=== PATIENT | male | born 1960 | race Caucasian/White ===

== ENCOUNTER 2023-05-29 12:08 | Inpatient (IN) | payer OTHER, MEDICAID ==
[~2023-05-29] VITALS: Ht 167.6 cm; Wt 79.0 kg
[2023-05-29 14:35] LABS: Basophils # (auto) 0 10 ^3/uL (0-0.2); Basophils % (auto) 0.4 % (0.0-2.0); Eosinophils # (auto) 0 10 ^3/uL (0-0.8); Eosinophils % (auto) 0.3 % (0.0-7.0); Hematocrit 26.1 % (41.0-53.0); Hemoglobin 9.1 g/dL (13.5-17.5); Lymphocytes # (auto) 1.8 10 ^3/uL (0.4-5.4); Lymphocytes % (auto) 14.5 % (10.0-50.0); Mean Corpuscular Hemoglobin 31.2 pg (28.0-32.0); Mean Corpuscular Hgb Conc. 34.9 g/dL (32.0-36.0); Mean Corpuscular Volume 89.3 fL (80.0-100.0); Monocytes # (auto) 0.7 10 ^3/uL (0-1.3); Monocytes % (auto) 5.7 % (0.0-12.0); Neutrophils # (auto) 9.9 10 ^3/uL (1.6-8.6); Neutrophils % (auto) 79.1 % (37.0-80.0); Nucleated Red Blood Cells % 0.2 %; Red Blood Cells 2.92 10^6/uL (4.5-5.90); Red Cell Distribution Width 13.4 % (11.8-14.3); White Blood Cell 12.5 10^3/uL (4.4-10.8)
[2023-05-29 14:52] LABS: Alanine Aminotransferase 19 U/L (7-40); Albumin 3.7 g/dL (3.2-4.8); Alkaline Phosphatase 94 U/L (46-116); Anion Gap 7 (5-15); Aspartate Aminotransferase 16 U/L (13-40); BUN/Creatinine Ratio 29.3 (10.0-20.0); Bilirubin, Total 1.9 mg/dL (0.2-1.0); Blood Urea Nitrogen 29 mg/dL (9-23); Calcium 9.1 mg/dL (8.7-10.4); Carbon Dioxide 26 mmol/L (20-30); Chloride 100 mmol/L (98-107); Lipase 70 U/L (12-53); Potassium 4.1 mmol/L (3.5-5.1); Sodium 133 mmol/L (136-145)
[2023-05-29 15:13] LABS: Glucose 439 mg/dL (74-106); Lactic Acid w/Reflex 2.7 mmol/L (0.4-2.0)
[2023-05-29] MEDS: SODIUM CHLORIDE 0.9% 1,000 ML IV ONE (15:43)
[2023-05-29] MEDS: PIPERACILLIN-TAZOB 3.375GM 100 ML IV ONE (15:44)
[2023-05-29] MEDS: PANTOPRAZOLE 40 MG/10 ML VIAL INJ IV ONE (15:46)
[2023-05-29 16:04] VITALS: PULSE 93; RESP 17; O2SAT 95
[2023-05-29] MEDS: IOHEXOL 300 MG/ML 100ML BOTTLE IJ ONE (16:09)
[2023-05-29] MEDS ORDERED: MORPHINE SULFATE INJ 2 MG/ml SYRG IV PRN ×2 (16:15)
[2023-05-29] MEDS ORDERED: NITROGLYCERIN 0.4 MG SL TAB SL PRN (16:15)
[2023-05-29 16:24] LABS: INR 1.14 (0.9-1.15); Partial Thromboplastin Time 21.9 SEC (24.5-34.5); Prothrombin Time 11.9 sec (9.3-11.8)
[2023-05-29] MEDS ORDERED: DEXTROSE (50%) 50ML SYRG IV PRN (16:30)
[2023-05-29] MEDS: ONDANSETRON HCL 4 MG/2 ML VIAL IV PRN (16:50)
[2023-05-29] MEDS: MORPHINE SULFATE INJ 2 MG/ml SYRG IV PRN (16:51)
[2023-05-29] MEDS: PANTOPRAZOLE 40mg/50ML NS AE 50 ML IV SCH (16:57)
[2023-05-29] MEDS: OCTREOTIDE ACETATE 100 MCG in SODIUM CHL 0.9% 50 ML IV ONE (17:58)
[2023-05-29] MEDS: SODIUM CHLORIDE 0.9% 1,000 ML IV SCH (18:00)
[2023-05-29] MEDS: OCTREOTIDE ACETATE 500 MCG in SODIUM CHL 0.9% 99 ML IV SCH (18:31)
[2023-05-29] MEDS: ACCU-CHEK COMFORT CURVE STRIP VI SCH (18:39)
[2023-05-29 18:50] LABS: Urine Bacteria None Seen /hpf (None Seen)
[2023-05-29 19:16] LABS: Hemoglobin 8.2 g/dL (13.5-17.5)
[2023-05-29 19:30] VITALS: PULSE 85; RESP 20; O2SAT 93
[2023-05-29 19:47] LABS: Urine Blood Negative /uL (Negative); Urine Clarity Clear (Clear); Urine Color Light-Yellow (Yellow); Urine Protein, UAD Negative (Negative); Urine Urobilinogen Normal (Negative); Urine WBC 1 /hpf (0 - 3)
[2023-05-29 19:50] LABS: Urine Specific Gravity > 1.050 (1.001-1.035)
[2023-05-30] VITALS (8 sets, daily range): BP systolic 104–132; BP diastolic 59–77; PULSE 78–86; RESP 14–20; TEMP 98.3–98.6; O2SAT 90–100
[2023-05-30 01:10] LABS: Hematocrit 22.7 % (41.0-53.0)
[2023-05-30 06:03] LABS: Basophils # (auto) 0 10 ^3/uL (0-0.2); Basophils % (auto) 0.4 % (0.0-2.0); Eosinophils # (auto) 0.1 10 ^3/uL (0-0.8); Eosinophils % (auto) 1.4 % (0.0-7.0); Hemoglobin 7.6 g/dL (13.5-17.5); Lymphocytes # (auto) 1.4 10 ^3/uL (0.4-5.4); Monocytes # (auto) 0.6 10 ^3/uL (0-1.3); Monocytes % (auto) 7.2 % (0.0-12.0)
[2023-05-30 06:04] LABS: Hematocrit 22.4 % (41.0-53.0); Lymphocytes % (auto) 18.3 % (10.0-50.0); Mean Corpuscular Hemoglobin 31.9 pg (28.0-32.0); Mean Corpuscular Hgb Conc. 34.1 g/dL (32.0-36.0); Mean Corpuscular Volume 93.4 fL (80.0-100.0); Neutrophils # (auto) 5.6 10 ^3/uL (1.6-8.6); Neutrophils % (auto) 72.7 % (37.0-80.0); Nucleated Red Blood Cells % 0.2 %; Red Cell Distribution Width 13.5 % (11.8-14.3); White Blood Cell 7.7 10^3/uL (4.4-10.8)
[2023-05-30 06:11] LABS: Chloride 106 mmol/L (98-107); Potassium 3.8 mmol/L (3.5-5.1); Sodium 135 mmol/L (136-145)
[2023-05-30 06:12] LABS: Anion Gap 8 (5-15); Carbon Dioxide 21 mmol/L (20-30)
[2023-05-30 06:17] LABS: BUN/Creatinine Ratio 16.5 (10.0-20.0); Blood Urea Nitrogen 13 mg/dL (9-23)
[2023-05-30 06:20] LABS: Glucose 251 mg/dL (74-106)
[2023-05-30] MEDS ORDERED: FLUMAZENIL 0.1 MG/ML INJ 10ML MDV IV ONE (09:11)
[2023-05-30] MEDS ORDERED: SODIUM CHLORIDE LOCK 10 ML ONE (09:11)
[2023-05-30] MEDS ORDERED: NALOXONE HCL 0.4 MG/ML VIAL ONE (09:11)
[2023-05-30] MEDS: MIDAZOLAM HCL 5 MG/ML-1ML VIAL ONE (09:21)
[2023-05-30] MEDS: fentaNYL CITRATE 100 MCG/2 ML VL ONE (09:21)
[2023-05-30] MEDS ORDERED: EPINEPHrine HCL 1 MG/10 ML SYRG ONE (09:22)
[2023-05-30 13:14] LABS: Hematocrit 21.1 % (41.0-53.0); Hemoglobin 7.3 g/dL (13.5-17.5)
[2023-05-30] MEDS ORDERED: DEXTROSE (50%) 50ML SYRG IV PRN (14:45)
[2023-05-30] MEDS: ACCU-CHEK COMFORT CURVE STRIP VI SCH (17:00)
[2023-05-30] MEDS: InsuLIN REG 1unit/0.01ml Soln (100units/ml) SC SCH (18:33)
[2023-05-30] MEDS: PANTOPRAZOLE 40 MG/10 ML VIAL INJ IV SCH (21:53)
[2023-05-31] VITALS (11 sets, daily range): BP systolic 108–129; BP diastolic 60–66; PULSE 68–87; RESP 15–20; TEMP 98.2–99; O2SAT 92–95
[2023-05-31 06:18] LABS: Basophils # (auto) 0 10 ^3/uL (0-0.2); Basophils % (auto) 0.2 % (0.0-2.0); Eosinophils # (auto) 0.2 10 ^3/uL (0-0.8); Hematocrit 25.7 % (41.0-53.0); Lymphocytes # (auto) 1.2 10 ^3/uL (0.4-5.4); Mean Corpuscular Hemoglobin 31.4 pg (28.0-32.0); Mean Corpuscular Hgb Conc. 34.9 g/dL (32.0-36.0); Mean Corpuscular Volume 89.7 fL (80.0-100.0); Monocytes # (auto) 0.4 10 ^3/uL (0-1.3); Monocytes % (auto) 7.5 % (0.0-12.0); Neutrophils # (auto) 4.1 10 ^3/uL (1.6-8.6); Neutrophils % (auto) 69.3 % (37.0-80.0); Nucleated Red Blood Cells % 0.1 %; Red Blood Cells 2.86 10^6/uL (4.5-5.90); Red Cell Distribution Width 13.8 % (11.8-14.3); White Blood Cell 5.9 10^3/uL (4.4-10.8)
[2023-05-31 06:27] LABS: Calcium 7.8 mg/dL (8.5-10.1); Chloride 104 mmol/L (98-107); Potassium 3.5 mmol/L (3.5-5.1); Sodium 135 mmol/L (136-145)
[2023-05-31 06:28] LABS: Anion Gap 8 (5-15); Carbon Dioxide 23 mmol/L (20-30)
[2023-05-31 06:33] LABS: BUN/Creatinine Ratio 15.2 (10.0-20.0); Blood Urea Nitrogen 10 mg/dL (9-23); Glucose 203 mg/dL (74-106)
[2023-05-31] MEDS: HYDROcodone-ACET 5/325MG TAB PO PRN (12:22)
[2023-05-31] MEDS: PROPRANOLOL HCL 20 MG TAB PO SCH (21:29)
[2023-06-01 01:00] VITALS: BP 108/65; PULSE 82; RESP 20; TEMP 100.2; O2SAT 94
[2023-06-01 05:00] VITALS: BP 109/64; PULSE 80; RESP 20; TEMP 99.5; O2SAT 94
[2023-06-01] MEDS: ACETAMINOPHEN 325 MG TAB PO PRN (05:23)
[2023-06-01 06:59] LABS: Hematocrit 25.8 % (41.0-53.0); Hemoglobin 8.9 g/dL (13.5-17.5)
[2023-06-01 09:00] VITALS: BP 100/61; PULSE 63; RESP 16; TEMP 98.2; O2SAT 96
[2023-06-01] MEDS ORDERED: ASCO500C16 PO (12:21)
[2023-06-01] MEDS ORDERED: PANT40TA57 PO (12:21)
[2023-06-01] MEDS ORDERED: PROP1TAB53 PO (12:21)
[2023-06-01] MEDS ORDERED: FERR-7 PO (12:21)
[2023-06-01 13:00] VITALS: BP 106/61; PULSE 58; RESP 17; TEMP 98.3; O2SAT 95
[2023-06-01 14:43] VITALS: BP 106/61; PULSE 64; RESP 17; TEMP 98.1; O2SAT 94
== END 2023-06-01 16:13 | disposition home or self-care (01) | DRG 432 ==
LOC: ER 12:08 → TELE 16:14 → TELE-CENTR 05-30 11:41
PROVIDERS: ADMIT Hospitalist; ATTEND Hospitalist
PROC: 06L38CZ Occlusion of Esophageal Vein with Extraluminal Device, Via Natural or Artificial Opening Endoscopic (ICD-10-PCS; 2023-05-30)
PROC: 30233N1 Transfusion of Nonautologous Red Blood Cells into Peripheral Vein, Percutaneous Approach (ICD-10-PCS; 2023-05-30)
PROC: 0DB78ZX Excision of Stomach, Pylorus, Via Natural or Artificial Opening Endoscopic, Diagnostic (ICD-10-PCS; principal; 2023-05-30 09:18)
DX: K74.60 Unspecified cirrhosis of liver (principal); K25.4 Chronic or unspecified gastric ulcer with hemorrhage; K29.71 Gastritis, unspecified, with bleeding; K76.6 Portal hypertension; I85.10 Secondary esophageal varices without bleeding; E87.20 Acidosis, unspecified; D64.9 Anemia, unspecified; E11.65 Type 2 diabetes mellitus with hyperglycemia; B19.20 Unspecified viral hepatitis C without hepatic coma
CPT/HCPCS: 36415; 43239; 71045; 74176; 74177; 80048; 80053; 81001; 82962; 83036; 83605; 83690; 84484; 85014; 85018; 85025; 85610; 85730; 86850; 86900; 86901; 86920; 96365; 96366; 96367; 96375; 96376; 99291; C9113; G0378; J1815; J2250; J2405; J2543